=== PATIENT | male | born 1985 | race Two or more races ===

== ENCOUNTER 2019-08-07 16:32 | Emergency (ER) | payer MEDICAID, OTHER ==
[~2019-08-07] VITALS: Ht 177.8 cm; Wt 73.5 kg
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
[2019-08-07] MEDS ORDERED: ACETAMINOPHEN 325 MG TABLET PO ONE (17:00)
[2019-08-07] MEDS ORDERED: ACETAMINOPHEN ES 500 MG TABLET ONE (17:09)
[2019-08-07 19:09] VITALS: BP 121/82
--- NOTE | 2019-08-07 19:09 | NUR ---
Patient discharged to home in stable condition. Written and verbal after care instructions given. Patient verbalizes understanding of instruction.
== END 2019-08-07 19:10 | disposition home or self-care (01) ==
LOC: ER 16:32
DX: M54.2 Cervicalgia (principal); M54.5 Low back pain; R51 Headache; Z60.2 Problems related to living alone
CPT/HCPCS: 70450-TC; 72100-TC; 72125-TC

== ENCOUNTER 2019-09-06 10:34 | Inpatient (IN) | payer MEDICAID, OTHER ==
[~2019-09-06] VITALS: Ht 165.1 cm; Wt 67.1 kg
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
[2019-09-06] MEDS ORDERED: ONDANSETRON HCL/PF 4 MG/2 ML VIAL ONE (10:55)
[2019-09-06] MEDS ORDERED: MORPHINE SULFATE INJ 4 MG/ML DISP.SYRIN ONE ×2 (10:56→12:10)
[2019-09-06 10:57] LABS: BASOPHILS # (AUTO) 0.1 /CMM (0.0-0.2); BASOPHILS % (AUTO) 0.7 % (0.0-2.0); EOSINOPHILS % (AUTO) 0.7 % (0.0-6.0); HEMATOCRIT 44 % (39-51); HEMOGLOBIN 14.8 g/dL (13.5-17.5); LYMPHOCYTES # (AUTO) 2.7 /CMM (0.8-4.8); LYMPHOCYTES % (AUTO) 24.2 % (20.0-44.0); MEAN CORPUSCULAR HGB CONC 33 g/dl (31.0-36.0); MEAN CORPUSCULAR VOLUME 87 fL (80-96); MONOCYTES # (AUTO) 0.6 /CMM (0.1-1.30); NEUTROPHILS # (AUTO) 7.8 /CMM (1.8-8.9); NEUTROPHILS % (AUTO) 69.4 % (43.0-81.0); PLATELET COUNT (AUTO) 324 /CMM (150-450); RED BLOOD CELL COUNT(AUTO) 5.11 MIL/uL (4.5-6.0); WHITE BLOOD COUNT (AUTO) 11.2 K/uL (4.3-11.0)
[2019-09-06] MEDS ORDERED: IV NS 0.9% 1,000 ML BAG IV ONE (11:00)
[2019-09-06] MEDS ORDERED: MORPHINE SULFATE INJ 2 MG/ML DISP.SYRIN IV ONE ×2 (11:00→12:00)
[2019-09-06] MEDS ORDERED: ONDANSETRON HCL/PF 4 MG/2 ML VIAL IVP ONE (11:00)
[2019-09-06 11:05] LABS: CALCIUM, SERUM 9.3 mg/dL (8.5-10.1); CREATININE 1.4 mg/dL (0.6-1.3); POTASSIUM 3.8 mmol/L (3.5-5.1)
[2019-09-06 11:10] LABS: ALBUMIN 4.3 g/dL (3.4-5.0); BILIRUBIN,DIRECT 0.1 mg/dL (0.0-0.2); BILIRUBIN,TOTAL 0.5 mg/dL (0.2-1.0)
--- NOTE | 2019-09-06 13:16 | NUR ---
CALLED NURSING SUP FOR M/S BED.
[2019-09-06] MEDS ORDERED: HYDROMORPHONE 1 MG/1 ML DISP.SYRIN IV ONE (13:30)
[2019-09-06] MEDS ORDERED: HYDROMORPHONE 1 MG/1 ML DISP.SYRIN ONE (13:32)
[2019-09-06] MEDS ORDERED: KETOROLAC TROMETHAMINE INJ 30 MG/ML VIAL ONE (13:33)
--- NOTE | 2019-09-06 13:42 | NUR ---
NURSING SUP GAVE M/S BED 118-1.
[2019-09-06 13:57] LABS: BILIRUBIN,URINE Negative (NEGATIVE); BLOOD, URINE Large Ery/uL (NEGATIVE); COLOR,URINE Yellow (YELLOW); KETONES,URINE Negative (NEGATIVE); LEUKOCYTE ESTERASE ,URINE Negative (NEGATIVE); NITRITE, URINE Negative (NEGATIVE); PROTEIN,URINE Negative (NEGATIVE); UGLUCOSE Negative (NEGATIVE); UROBILINOGEN,URINE 0.2 EU/dL (0.2)
[2019-09-06 13:58] LABS: APPEARANCE,URINE Hazy (CLEAR)
--- NOTE | 2019-09-06 13:59 | NUR ---
[facility].
[2019-09-06] MEDS ORDERED: KETOROLAC TROMETHAMINE INJ 30 MG/ML VIAL IV ONE (14:00)
[2019-09-06 14:07] LABS: BACTERIA,URINE Rare /HPF (None Seen); RBC,URINE 50-80 /HPF (0-2); SQUAMOUS EPITHELIAL CELL,UR Few /HPF (None Seen)
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
--- NOTE | 2019-09-06 14:36 | NUR ---
report given to krishna prado for bridget pt transported to 1st floor
[2019-09-06] MEDS ORDERED: ACETAMINOPHEN 325 MG TABLET PO PRN (15:00)
[2019-09-06] MEDS ORDERED: ONDANSETRON HCL/PF 4 MG/2 ML VIAL IVP PRN (15:00)
[2019-09-06] MEDS ORDERED: KETOROLAC TROMETHAMINE INJ 30 MG/ML VIAL IM PRN (15:00)
[2019-09-06] MEDS ORDERED: MAGNESIUM HYDROXIDE 30 ML UDC PO PRN (15:00)
[2019-09-06] MEDS ORDERED: MAG HYDROX/AL HYDROX/SIMETH 30 ML UDC PO PRN (15:00)
[2019-09-06] MEDS ORDERED: HYDROMORPHONE INJ 2 MG/ML DISP.SYRIN IV PRN (15:00)
[2019-09-06] MEDS ORDERED: ZOLPIDEM TARTRATE 5 MG TABLET PO PRN (15:00)
[2019-09-06] MEDS: IV NS 0.9% 1,000 ML IV PRN (15:01)
[2019-09-06 16:00] VITALS: BP 99/69
--- NOTE | 2019-09-06 18:55 | NUR ---
RN CLOSING NOTE PATIENT IN BED, AWAKE AND ALERT. WATCHING TV. ON ROOM AIR NO SOB NOTED. NOT ASKING FOR ANY PAIN MEDS AT THIS TIME. PATIENT IS AWARE THAT DR VU WILL SEE HIM TOMORROW FOR A PROCEDURE. NPO AFTER MIDNIGHT. HAS A RIGHT AC #18 WITH NS AT 75 ML/HR. BED LOCKED AND IN LOWEST POSITION. CALL LIGHT WITHIN REACH. WILL ENDORSE TO NOC SHIFT
[2019-09-06 20:00] VITALS: BP 110/58
--- NOTE | 2019-09-06 20:00 | NUR ---
RN NOTES PATIENT IN BED, ALERT AND ORIENTED X4, ROOM AIR, COMPLAINING OF LOWER QUAD PAIN OF 8/10, TORADOL FOR PAIN, NO N/V, TOLERATING FLUIDS AND FOOD, AMBULATES TO THE TOILET, INDEPENDENT WITH SELF CARE, NPO AT AFTER MIDNIGHT FOR JJ STENTING. CALL LIGHT WITHIN REACH
--- NOTE | 2019-09-06 21:53 | NUR ---
RN NOTES SEEN BY DR. VU FOR JJ STENTING PROCEDURE 09/07/19, NO TIME YET, WILL HAVE CONSENT SIGNED BY PATIENT, NEW ORDER OF [facility].
[2019-09-06] MEDS ORDERED: CEFTRIAXONE 1 G VIAL ONE (22:10)
[2019-09-06] MEDS: CEFTRIAXONE 1 G in IV D5W 50 ML IV SCH (22:14)
[2019-09-07 04:00] VITALS: BP 99/64
[2019-09-07] MEDS: IV NS 0.9% 1,000 ML IV PRN (04:07)
--- NOTE | 2019-09-07 06:49 | NUR ---
RN NOTES Patient alert and oriented x4, stable on room air, denies pain at this time, given Toradol x1, NS at 75 ml/hr, NPO since after midnight, seen by Dr. Amaya for surgery at 0930, slept for 6 hours
--- NOTE | 2019-09-07 07:30 | NUR ---
RN NOTES RECEIVED PATIENT IN BED RESTING COMFORTABLY IN MODERATE HIGH BACK REST. A/O X 4. NO SIGNS OF DISTRESS NOTED AT THIS TIME. IV FLUIDS ON RAC#18 WITH NS RUNNING @75ML/HR. PATENT AND INTACT. NPO SINCE MIDNIGHT, SCHEDULED FOR SURGERY @09:30AM. CONSENTS DONE. SAFETY MEASURES IN PLACE, BED IN LOW LOCKED POSITION WITH SIDE RAILS UP X2. CALL LIGHT WITHIN EASY REACH. WILL CONTINUE TO MONITOR.
[2019-09-07 07:33] LABS: BASOPHILS % (AUTO) 0.3 % (0.0-2.0); EOSINOPHILS % (AUTO) 0.5 % (0.0-6.0); HEMATOCRIT 42 % (39-51); HEMOGLOBIN 14.2 g/dL (13.5-17.5); LYMPHOCYTES # (AUTO) 2.2 /CMM (0.8-4.8); LYMPHOCYTES % (AUTO) 17.8 % (20.0-44.0); MEAN CORPUSCULAR HGB CONC 34 g/dl (31.0-36.0); MEAN CORPUSCULAR VOLUME 87 fL (80-96); MONOCYTES # (AUTO) 0.7 /CMM (0.1-1.30); NEUTROPHILS # (AUTO) 9.2 /CMM (1.8-8.9); NEUTROPHILS % (AUTO) 75.4 % (43.0-81.0); PLATELET COUNT (AUTO) 273 /CMM (150-450); RED BLOOD CELL COUNT(AUTO) 4.81 MIL/uL (4.5-6.0); WHITE BLOOD COUNT (AUTO) 12.2 K/uL (4.3-11.0)
[2019-09-07 08:00] VITALS: BP 91/58
[2019-09-07 08:32] LABS: ALBUMIN 3.6 g/dL (3.4-5.0); BILIRUBIN,TOTAL 0.7 mg/dL (0.2-1.0); CALCIUM, SERUM 8.5 mg/dL (8.5-10.1); CREATININE 1.6 mg/dL (0.6-1.3); MAGNESIUM 1.9 mg/dL (1.8-2.4); PHOSPHORUS 2.4 mg/dL (2.5-4.9); POTASSIUM 3.9 mmol/L (3.5-5.1)
--- NOTE | 2019-09-07 09:42 | NUR ---
RN NOTES PATIENT LEFT FOR SURGERY IN STABLE CONDITION VIA HOSPITAL BED WITH 2 HOSPITAL STAFF, CONSENTS DONE.
[2019-09-07] MEDS ORDERED: NEUTRA PHOS 1 POWD.PACKET PO ONE (10:00)
[2019-09-07] MEDS ORDERED: FENTANYL PF 100MCG/2ML AMPUL ONE (10:16)
[2019-09-07] MEDS ORDERED: FAMOTIDINE/PF INJ 20 MG/2 ML VIAL IV ONE (10:16)
[2019-09-07] MEDS ORDERED: MIDAZOLAM HCL 2 MG/2ML VIAL ONE (10:16)
--- NOTE | 2019-09-07 12:00 | NUR ---
RN NOTES PATIENT CAME BACK FROM SURGERY VIA HOSPITAL BED WITH O.R STAFF, PATIENT IN STABLE CONDITION WITH NO S/S OF DISTRESS NOTED AT THIS TIME. WILL CONTINUE TO MONITOR.
[2019-09-07 16:00] VITALS: BP 96/52
[2019-09-07] MEDS: HYDROCODONE/APAP 5/325MG 1 EACH TABLET PO PRN (18:43)
--- NOTE | 2019-09-07 18:57 | NUR ---
RN CLOSING NOTES PATIENT IN BED RESTING COMFORTABLY IN MODERATE HIGH BACK REST. A/O X 4. NO SIGNS OF DISTRESS NOTED THROUGHOUT THE SHIFT. IV FLUIDS ON RAC#18 WITH NS RUNNING @75ML/HR. PATENT AND INTACT. ALL NURSING NEEDS ATTENDED. SAFETY MEASURES IN PLACE, BED IN LOW LOCKED POSITION WITH SIDE RAILS UP X2. CALL LIGHT WITHIN EASY REACH. WILL ENDORSE TO CLINICAL DOCUMENT IMPROVEMENT EDUCATOR NURSE FOR JACQUELYN.
--- NOTE | 2019-09-07 19:15 | NUR ---
MS RN NOTES RECEIVED PT IN BED RESTING AWAKE AND ABLE TO MAKE NEEDS KNOWN. PT A/O X3. RESPIRATIONS EVEN AND UNLABORED WITH NO S/S OF ACUTE DISTRESS OR SOB NOTED. IV FLUIDS ON RAC#18 WITH NS INFUSING @75ML/HR. SAFETY MEASURES IN PLACE WITH BED IN LOWEST LOCKED POSITION WITH SIDE RAILS UP X2. CALL LIGHT WITHIN REACH. WILL CONTINUE TO MONITOR.
[2019-09-07] MEDS: CEFTRIAXONE 1 G in IV D5W 50 ML IV SCH (22:01)
[2019-09-08] MEDS: HYDROCODONE/APAP 5/325MG 1 EACH TABLET PO PRN (03:13)
[2019-09-08] MEDS: IV NS 0.9% 1,000 ML IV PRN (03:13)
[2019-09-08 07:19] LABS: BASOPHILS # (AUTO) 0.1 /CMM (0.0-0.2); BASOPHILS % (AUTO) 0.9 % (0.0-2.0); EOSINOPHILS % (AUTO) 2.4 % (0.0-6.0); HEMATOCRIT 36 % (39-51); HEMOGLOBIN 12.5 g/dL (13.5-17.5); LYMPHOCYTES # (AUTO) 2.3 /CMM (0.8-4.8); LYMPHOCYTES % (AUTO) 30.5 % (20.0-44.0); MEAN CORPUSCULAR HGB CONC 34 g/dl (31.0-36.0); MEAN CORPUSCULAR VOLUME 86 fL (80-96); MONOCYTES # (AUTO) 0.4 /CMM (0.1-1.30); MONOCYTES % (AUTO) 5.7 % (2.0-12.0); NEUTROPHILS # (AUTO) 4.5 /CMM (1.8-8.9); NEUTROPHILS % (AUTO) 60.5 % (43.0-81.0); PLATELET COUNT (AUTO) 222 /CMM (150-450); WHITE BLOOD COUNT (AUTO) 7.4 K/uL (4.3-11.0)
[2019-09-08 07:27] LABS: CREATININE 1.1 mg/dL (0.6-1.3); PHOSPHORUS 2.8 mg/dL (2.5-4.9); POTASSIUM 3.7 mmol/L (3.5-5.1)
--- NOTE | 2019-09-08 07:35 | NUR ---
MS RN NOTES PT IN BED RESTING AWAKE AND ABLE TO MAKE NEEDS KNOWN. PT A/O X3. RESPIRATIONS EVEN AND UNLABORED WITH NO S/S OF ACUTE DISTRESS OR SOB NOTED THROUGHOUT SHIFT. IV FLUIDS ON RAC#18 WITH NS INFUSING @75ML/HR. SAFETY MEASURES IN PLACE WITH BED IN LOWEST LOCKED POSITION WITH SIDE RAILS UP X2. CALL LIGHT WITHIN REACH. WILL ENDORSE TO ONCOMING NURSE FOR JACQUELYN.
--- NOTE | 2019-09-08 07:59 | NUR ---
RN OPENING NOTES Patient received on room air, no sob noted, patient denies pain at this time. patient comfortable in his bed and is currently a/o x3. R AC #18 NS @ 75 ml per hour remains patent. Patient has no further concerns at this time. Bed at the lowest setting, call light within reach, side rails up x2.
[2019-09-08 08:00] VITALS: BP 92/61
[2019-09-08] MEDS ORDERED: ONDA4TAB5 PO (10:31)
[2019-09-08] MEDS ORDERED: HYDR-4384 PO (10:31)
--- NOTE | 2019-09-08 13:54 | NUR ---
UX DEVELOPER NOTES Patient discharged at this time. No sob noted, vital signs stable, patient denies pain at this time. Patient and patients stated that they do not have any further questions about the discharge. Patient has all paperwork signed, they have all paperwork that they have requested as well. IV line removed with minimal bleeding noted. Patient has all belongings with them.
== END 2019-09-08 13:30 | disposition home or self-care (01) | DRG 465 ==
LOC: ER 10:38 → MEDSG1 14:06
PROVIDERS: ADMIT Nurse Practitioner Acute Care; ATTEND Nurse Practitioner Acute Care
PROC: 0T778DZ Dilation of Left Ureter with Intraluminal Device, Via Natural or Artificial Opening Endoscopic (ICD-10-PCS; principal; 2019-09-07)
DX: N13.2 Hydronephrosis with renal and ureteral calculous obstruction (principal); N17.0 Acute kidney failure with tubular necrosis; D72.829 Elevated white blood cell count, unspecified; N13.9 Obstructive and reflux uropathy, unspecified; K44.9 Diaphragmatic hernia without obstruction or gangrene; R73.9 Hyperglycemia, unspecified; Z87.442 Personal history of urinary calculi
CPT/HCPCS: 36415; 74018; 80048-TC; 80053-TC; 80061-TC; 80076-TC; 81000-TC; 83690-TC; 83735-TC; 84100-TC; 85025-TC; 85610-TC; 86850-TC; 87081-TC; G0378; J0690; J0696; J1170; J1885; J2250; J2270; J2405; J2704; J2765; J3010; J3490; J7030; J7060